=== PATIENT | male | born 1950 | race Caucasian/White ===

== ENCOUNTER 2017-08-12 17:53 | Emergency (ER) | payer MEDICARE, BC ==
[2017-08-12 18:16] VITALS: BP 192/93
[2017-08-12] MEDS ORDERED: Sodium Chloride 0.9% 10 ML Syringe FLUSH PRN (18:48)
[2017-08-12] MEDS ORDERED: Sodium Chloride 0.9% 1,000 ML IV ONE (18:48)
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
--- NOTE | 2017-08-13 07:57 | US ---
Limited abdominal ultrasound: Multiple real-time images of the upper right abdomen were obtained. Numerous gallstones are seen within the gallbladder. No gallbladder wall thickening or biliary duct dilatation is seen. Liver shows no focal parenchymal abnormality. Liver may be slightly echogenic. Right kidney shows no hydronephrosis or mass. Right kidney measures 13.1 cm in length. Pancreas is incompletely seen. Visualized portions of the pancreas are within normal limits. Impression: 1. Numerous gallstones without gallbladder wall thickening or biliary duct dilatation. 2. Probable fatty infiltration within the liver. Diagnostic code #3 Agree with preliminary report issued by [facility] ([facility] preliminary report dictated on 08/12/17, 10:31 PM Central Time)
== END 2017-08-12 22:45 | disposition home or self-care (01) ==
LOC: JD.ED 17:53
DX: R17 Unspecified jaundice (principal); I10 Essential (primary) hypertension; Z87.891 Personal history of nicotine dependence; Z98.890 Other specified postprocedural states
CPT/HCPCS: 36415; 76705; 80053; 82248; 82977; 83690; 85025; 86140; 96360; 99284; J7040; J7050